=== PATIENT | female | born 1955 | race Caucasian/White ===

== ENCOUNTER 2018-09-30 09:11 | Day surgery (SDC) | payer BC ==
[2018-09-30] MEDS ORDERED: Midazolam 1 MG/ML 2 ML SDV IV ONE (09:12)
[2018-09-30] MEDS ORDERED: Sodium Chloride 0.9% 10 ML Syringe FLUSH PRN (09:15)
--- NOTE | 2018-10-01 07:56 | OR ---
DATE OF OPERATION: 09/30/2018 SURGEON: Valery Franco MD PREOPERATIVE DIAGNOSIS: Visually significant cataract, left eye. POSTOPERATIVE DIAGNOSIS: Visually significant cataract, left eye. PROCEDURE PERFORMED: Phacoemulsification with placement of multifocal intraocular lens, left eye. ASSEMBLER PRODUCT: None. ANESTHESIA: Local with sedation. FINDINGS: None. COMPLICATIONS: None. BLOOD LOSS: None. IMPLANTS: Ruel [id number]. CDE: 1.09. DESCRIPTION OF PROCEDURE: After risks and benefits were reviewed with the patient, consent was obtained in the preoperative area, and the left eye was marked with a surgical pen. The patient received preoperative dilating drops, along with ketorolac and moxifloxacin drops and tetracaine. The patient was taken to the operating room, where a time-out was performed, and the patient was placed under monitored anesthesia care. The patient received further tetracaine for anesthesia. The patient's left eye was then prepped and draped for ophthalmic surgery, and the microscope was brought into position and focussed. A paracentesis incision was made followed by injection of preservative-free 1% lidocaine into the anterior chamber, followed by injection of Viscoat into the anterior chamber. A microkeratome blade was used to make a corneal limbal incision. A cystotome was then used to make the beginning of the capsulorhexis, which was carried around 360 degrees using Utrata forceps. A Gomez cannula with BSS was then used to hydrodissect and hydrodelineate the nucleus. The nucleus was removed in a [id number] manner using phacoemulsification. Irrigation and aspiration was used to remove the remaining cortical material. Provisc was used to inflate the capsular bag. An Ruel ReSTOR SN6AD1 13.0 diopter lens, serial #[id number] was injected into the capsular bag using Visualase shooter. A Sinskey hook was used to center the lens. Irrigation and aspiration was used to remove the remaining cortical material and Provisc from the anterior chamber. BSS on a cannula was used to inflate the anterior chamber and hydrate the wound. The wound was checked and found to be watertight. 1 mg of vancomycin was injected into the anterior chamber. Drapes removed and the eye was cleaned, and 1 drop of brimonidine and TobraDex were placed into the eye. The eye was shielded, and the patient was taken to Recovery in stable condition. /[id number] JOSE/FLAVIO CC: COSME Dickerson PA-C MTDD
== END 2018-09-30 12:38 | disposition home or self-care (01) ==
LOC: FB.SDS 09:11
PROVIDERS: ATTEND Ophthalmology
DX: H26.9 Unspecified cataract (principal); M85.80 Other specified disorders of bone density and structure, unspecified site; Z79.82 Long term (current) use of aspirin; Z79.899 Other long term (current) drug therapy
CPT/HCPCS: J2001; J2250

== ENCOUNTER 2018-10-28 07:11 | Day surgery (SDC) | payer BC ==
[2018-10-28] MEDS ORDERED: Midazolam 1 MG/ML 2 ML SDV IV ONE (07:12)
[2018-10-28] MEDS ORDERED: fentaNYL 100 MCG/2 ML SDV IV ONE (07:12)
--- NOTE | 2018-10-28 19:01 | OR ---
DATE OF OPERATION: 10/28/2018 SURGEON: Valery Franco MD PREOPERATIVE DIAGNOSIS: Visually significant cataract, right eye. POSTOPERATIVE DIAGNOSIS: Visually significant cataract, right eye. PROCEDURES PERFORMED: Phacoemulsification with multifocal intraocular lens placement, right eye. ASSISTANTS: None. ANESTHESIA: Local with sedation. COMPLICATIONS: None. BLOOD LOSS: None. IMPLANTS: Ruel multifocal SV25T0. 12.5 diopter lens implanted. CDE: 0.64. DESCRIPTION OF PROCEDURE: After risks and benefits were reviewed with the patient, consent was obtained in the preoperative area, and the operative eye was marked with a surgical pen. The patient received dilating drops and moxifloxacin, along with ketorolac in the preoperative area. The patient was taken to the operating room, where a time-out was performed, and the patient was placed under monitored anesthesia care. Topical tetracaine was used for anesthesia. The operative eye was prepped and draped for ophthalmic surgery, and the microscope was brought into position and focussed. A paracentesis incision was made, followed by injection of preservative-free 1% lidocaine into the anterior chamber, followed by injection of Viscoat into the anterior chamber. A microkeratome blade was used to make a corneal limbal incision temporarily. A cystotome was used to make the beginning of the capsulorrhexis, which was carried around 360 degrees in a curvilinear fashion using Utrata forceps. A Gomez cannula with BSS was used to hydrodissect and hydrodelineate the nucleus. The nucleus was removed in a divide and conquer manner using phacoemulsification. Irrigation and aspiration were used to remove the remaining cortical material. Provisc was used to inflate the capsular bag, and a pre-loaded 12.5 diopter lens, serial number #[id number] was injected into the capsular bag. A Sinskey hook was used to position and center the lens. Next, irrigation and aspiration was used to remove any remaining viscoelastic and cortical material from the anterior chamber. BSS on a cannula was used to inflate the anterior chamber and hydrate the wound. The wound was checked and found to be watertight. Drapes were removed and the eye was cleaned. A drop of brimonidine 0.15% and a drop of TobraDex was placed. The eye was shielded, and the patient was taken to the recovery room in stable condition. /[id number] JOSE/FLAVIO CC: DO AISHWARYA HOLLEY CNP [facility]
== END 2018-10-28 09:28 | disposition home or self-care (01) ==
LOC: FB.SDS 07:11
PROVIDERS: ATTEND Ophthalmology
DX: H25.813 Combined forms of age-related cataract, bilateral (principal)
CPT/HCPCS: 66984; J2250; J3010